=== PATIENT | male | born 1970 | race Caucasian/White ===

== ENCOUNTER 2018-07-17 20:31 | Emergency (ER) | payer OTHER ==
[~2018-07-17] VITALS: Ht 182.9 cm; Wt 105.1 kg
[2018-07-17 20:34] VITALS: TEMP 36.7; Ht 182.9 cm; Wt 105.1 kg
--- NOTE | 2018-07-17 22:17 | DIAGNOSTIC IMAGING REPORT ---
R RIBS UNILATERAL WITH PA CHEST CLINICAL HISTORY: Fall, R anterior/lateral rib pain. COMPARISON STUDY: No previous studies for comparison. FINDINGS: There is no pneumothorax or pleural effusion. Lungs are clear. Cardiac size is normal. Mediastinal contours are normal. Pulmonary vascularity is normal. No acute right rib fractures are identified. IMPRESSION: No pneumothorax. No acute right rib fractures identified. Electronically signed by: Sean Brannon M.D. 07/17/2018 10:15 PM Dictated Date/Time: 07/17/2018 10:11 PM
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
[2018-07-17 22:56] VITALS: BP 129/89; PULSE 72; O2SAT 96
== END 2018-07-17 22:58 | disposition home or self-care (01) ==
LOC: C.EDB 20:33 → C.EDD 22:58
DX: R07.81 Pleurodynia (principal); M25.561 Pain in right knee; V28.0XXA Motorcycle driver injured in noncollision transport accident in nontraffic accident, initial encounter